=== PATIENT | female | born 1965 | race African-American/Black ===

== ENCOUNTER 2021-06-10 08:43 | Emergency (ER) | payer BC, OTHER ==
[2021-06-10] MEDS ORDERED: CASIRIVIMAB/IMDEVIMAB 10 ML in SODIUM CHLORIDE 100 ML IVPB ONE (08:55)
[2021-06-10 08:57] VITALS: TEMP 97.9; BMI 38.4
[2021-06-10 12:22] VITALS: BP 154/94; PULSE 85
== END 2021-06-10 15:05 | disposition home or self-care (01) ==
LOC: JCOVINFU 08:43
PROC: 3E033GC Introduction of Other Therapeutic Substance into Peripheral Vein, Percutaneous Approach (ICD-10-PCS; principal; 2021-06-10)
DX: U07.1 COVID-19 (principal)
CPT/HCPCS: 99284-25; Q0240

== ENCOUNTER 2023-03-21 11:04 | Emergency (ER) | payer OTHER ==
[2023-03-21 11:17] VITALS: BP 185/103; PULSE 93; RESP 17; TEMP 98.1; BMI 41.5
== END 2023-03-21 13:11 | disposition home or self-care (01) ==
LOC: JER 11:04
DX: N63.0 Unspecified lump in unspecified breast (principal)
CPT/HCPCS: 99283-25

== ENCOUNTER 2023-10-23 08:56 | Emergency (ER) | payer BC, OTHER ==
[2023-10-23 09:04] VITALS: BMI 37.4
[2023-10-23] MEDS ORDERED: OXYTOCIN 30 UNITS in 0.9% NS 30 UNIT/500 ML INFUS.BAG IVPB SCH (10:00)
[2023-10-23] MEDS: KETOROLAC TROMETHAMINE 15 MG/ML VIAL IM ONE (10:13)
[2023-10-23] MEDS ORDERED: METHOCARBAMOL 500 MG TABLET ONE (10:23)
[2023-10-23] MEDS ORDERED: KETOROLAC TROMETHAMINE 15 MG/ML VIAL ONE (10:23)
[2023-10-23] MEDS ORDERED: ACETAMINOPHEN 500 MG TABLET (FP) ONE (10:23)
[2023-10-23] MEDS: KETOROLAC TROMETHAMINE 15 MG/ML VIAL IVPUSH ONE (10:31)
[2023-10-23] MEDS: METHOCARBAMOL 750 MG TABLET PO ONE (10:31)
[2023-10-23] MEDS: ACETAMINOPHEN 500 MG TABLET (FP) PO ONE (10:31)
[2023-10-23 10:35] LABS: BASO % 0.5 % (0-2.0); EOS % 2.5 % (0-4.5); HEMATOCRIT 46.9 % (32.4-45.2); HEMOGLOBIN 15.1 GM/dL (10.7-15.3); LYMPH % 21.2 % (8-40); MCH 30.8 pg (25.7-33.7); MCHC 32.3 g/dl (32.0-36.0); MEAN CELL VOLUME 95.3 fl (80-96); MEAN PLT VOLUME 9.9 fl (7.5-11.1); MONO % 6.9 % (3.8-10.2); NEUT % 68.9 % (42.8-82.8); PLATELET COUNT 224 10^3/uL (134-434); RBC 4.92 M/mm3 (3.60-5.2); RDW 16.1 % (11.6-15.6); WHITE BLOOD COUNT 9.4 K/mm3 (4.0-10.0)
[2023-10-23 10:37] LABS: EPI CELLS 12 /uL (0-25.1); HYALINE CASTS 0 /uL (0-3.1); PH,URINE 6.5 (5.0-8.0); URINE APPEARANCE CLEAR; URINE BACTERIA >9,000 /uL (0-1359); URINE BILIRUBIN NEGATIVE (NEGATIVE); URINE COLOR YELLOW; URINE GLUCOSE (UA) NEGATIVE (NEGATIVE); URINE KETONE NEGATIVE (NEGATIVE); URINE LEUK ESTERASE NEGATIVE (NEGATIVE); URINE NITRITE POSITIVE (NEGATIVE); URINE PROTEIN TRACE (NEGATIVE); URINE RBC 11 /uL (0-23.9); URINE UROBILINOGEN 0.2 mg/dL (0.2-1.0); URINE WBC 19 /uL (0-25.8)
[2023-10-23] MEDS ORDERED: LIDOCAINE 4% PATCH TP ONE (10:46)
[2023-10-23] MEDS: LIDOCAINE 4% PATCH TP ONE (10:49)
[2023-10-23 10:56] LABS: ALBUMIN 3.6 g/dl (3.4-5.0); BLOOD UREA NITROGEN 12.9 mg/dL (7-18); CALCIUM 9.1 mg/dL (8.5-10.1)
[2023-10-23 10:59] LABS: CREATININE 0.7 mg/dL (0.55-1.3)
[2023-10-23 11:01] LABS: BILIRUBIN,TOTAL 0.5 mg/dL (0.2-1); TOT PROT 7.5 g/dl (6.4-8.2)
[2023-10-23] MEDS ORDERED: CEFTRIAXONE 1 GM/50 ML BAG ONE (12:14)
[2023-10-23] MEDS: CEFTRIAXONE 1,000 MG in DEXTROSE 5%-WATER - 50 ML IVPB ONE (12:17)
[2023-10-23 12:27] VITALS: BP 127/80; PULSE 75; RESP 18; TEMP 98.2
[2023-10-23] MEDS ORDERED: LIDOCAINE PATCH REMOVAL MC ONE (22:00)
== END 2023-10-23 13:15 | disposition home or self-care (01) ==
LOC: JERFT 08:56
PROC: 3E03329 Introduction of Other Anti-infective into Peripheral Vein, Percutaneous Approach (ICD-10-PCS; principal; 2023-10-23)
PROC: 3E0333Z Introduction of Anti-inflammatory into Peripheral Vein, Percutaneous Approach (ICD-10-PCS; 2023-10-23)
DX: M54.50 Low back pain, unspecified (principal); N39.0 Urinary tract infection, site not specified
CPT/HCPCS: 36415; 80053; 81003; 85025; 87086; 87186; 99284-25

== ENCOUNTER 2024-09-07 06:52 | Day surgery (SDC) | payer BC ==
[2024-09-02 14:02] VITALS: BMI 37.1
[2024-09-07] MEDS ORDERED: LIDOCAINE HCL 1%, 10 MG/ML (20ML VIAL) ONE (10:47)
[2024-09-07] MEDS ORDERED: MIDAZOLAM HCL 2 MG/2 ML SINGLE DOSE VIAL ONE ×2 (11:00→11:11)
[2024-09-07] MEDS ORDERED: PROPOFOL 20 ML ONE (11:05)
[2024-09-07] MEDS ORDERED: ceFAZolin SODIUM 1 GM VIAL ONE ×2 (11:13)
[2024-09-07] MEDS: ceFAZolin SODIUM 1 GM VIAL IVPB ONE (11:15)
[2024-09-07] MEDS: LIDOCAINE HCL 1%, 10 MG/ML (20ML VIAL) INF ONE (11:16)
[2024-09-07] MEDS ORDERED: oxyCODONE HCL 5 MG TABLET PO PRN (11:53)
[2024-09-07] MEDS ORDERED: ONDANSETRON 4 MG/2 ML VIAL IVPUSH PRN (11:53)
[2024-09-07] MEDS ORDERED: LACTATED RINGERS SOLUTION 1,000 ML IV SCH (12:00)
[2024-09-07 13:04] VITALS: RESP 16
[2024-09-07 13:33] VITALS: BP 118/64; PULSE 83; TEMP 98
== END 2024-09-07 13:35 | disposition home or self-care (01) ==
LOC: JASU-SURG 06:52
PROVIDERS: ATTEND Surgery
PROC: 0HBT0ZX Excision of Right Breast, Open Approach, Diagnostic (ICD-10-PCS; principal; 2024-09-07 12:30)
DX: N60.31 Fibrosclerosis of right breast (principal)
CPT/HCPCS: 88307-TC; 88312-TC; 94760

== ENCOUNTER 2024-12-29 16:55 | Emergency (ER) | payer BC ==
[2024-12-29 17:03] VITALS: BP 96/60; PULSE 93; RESP 20; TEMP 98.3; BMI 36.6
[2024-12-29] MEDS: SODIUM CHLORIDE 1,000 ML IV ONE (18:35)
[2024-12-29 18:43] LABS: ABSOLUTE IMMATURE GRANULOCYTES 0.02 x10^3/uL (0.0-0.031); BASOPHILS # 0.03 x10^3/uL (0.01-0.08); EOSINOPHIL % 2.5 % (0.7-5.8); EOSINOPHILS # 0.23 x10^3/uL (0.04-0.36); MCHC 31.2 g/dl (32.2-35.5); MEAN CELL VOLUME 97.5 fl (79.4-94.8); MEAN PLT VOLUME 11.4 fl (9.4-12.3); MONOCYTE # 0.81 x10^3/uL (0.24-0.86); MONOCYTE % 8.8 % (4.7-12.5); RDW 14.2 % (12.3-16.6)
[2024-12-29 18:47] LABS: EPI CELLS 16 /uL (0-25.1); HYALINE CASTS 0 /uL (0-3.1); URINE APPEARANCE CLEAR; URINE BACTERIA 88 /uL (0-1359); URINE BILIRUBIN NEGATIVE (NEGATIVE); URINE COLOR YELLOW; URINE GLUCOSE (UA) NEGATIVE (NEGATIVE); URINE KETONE NEGATIVE (NEGATIVE); URINE LEUK ESTERASE TRACE (NEGATIVE); URINE NITRITE NEGATIVE (NEGATIVE); URINE PROTEIN NEGATIVE (NEGATIVE); URINE RBC 9 /uL (0-23.9); URINE UROBILINOGEN 0.2 mg/dL (0.2-1.0); URINE WBC 17 /uL (0-25.8)
[2024-12-29 18:51] LABS: INR 0.98 (0.83-1.09); PROTHROMBIN TIME (PATIENT) 10.8 SEC (9.7-13.0)
[2024-12-29 18:54] LABS: ACTIVATED PTT 29.5 SECONDS (25.2-36.5)
[2024-12-29 19:19] LABS: CO2 34.0 mmol/L (21-32); GLUCOSE,RANDOM 101.0 mg/dL (74-106)
[2024-12-29 19:22] LABS: CREATININE 0.9 mg/dL (0.55-1.3); SGOT/AST 18.0 U/L (15-37); SGPT/ALT 23.0 U/L (13-61)
[2024-12-29 19:23] LABS: TOT PROT 7.6 g/dl (6.4-8.2)
[2024-12-29 19:25] LABS: ALK PHOS 144.0 U/L (45-117)
== END 2024-12-29 21:24 | disposition home or self-care (01) ==
LOC: JER 16:55
PROC: 3E0337Z Introduction of Electrolytic and Water Balance Substance into Peripheral Vein, Percutaneous Approach (ICD-10-PCS; principal; 2024-12-29)
DX: N30.00 Acute cystitis without hematuria (principal); R42 Dizziness and giddiness
CPT/HCPCS: 36415; 70450-TC; 71045-TC-FY; 80053; 81003; 84443; 84484; 85025; 85610; 85730; 87086; 93005; 93010; 99285-25